=== PATIENT | male | born 1945 | race Caucasian/White ===

== ENCOUNTER → 2018-06-14 15:48 | Outpatient (CLI) | payer OTHER, SELFPAY ==
--- NOTE | 2018-06-14 | DI.RAD.S_ITS ---
PROCEDURE: XR CHEST 2V INDICATIONS: OSTEOARTHRITIS OF SPINE TECHNIQUE: 2 views of the chest were acquired. COMPARISON: None. FINDINGS: Surgical changes and devices: Sternotomy wires, presumed prior CABG. Lungs and pleura: No left-sided pleural effusions or pneumothorax but there is a small posterior subpulmonic right effusion. Lungs are mildly edematous. Mediastinum: Mediastinal contours are normal. Heart size is normal. Bones and chest wall: No suspicious bony abnormalities. Soft tissues appear unremarkable. IMPRESSION: Mild pulmonary edema. Small subpulmonic left effusion. Dictated by: Bala Shrestha M.D. on 06/14/2018 at 16:33 Approved by: Bala Shrestha M.D. on 06/14/2018 at 16:34
== END ==
PROVIDERS: Visit Provider Orthopaedic Surgery Orthopaedic Surgery of the Spine
DX: M47.26 Other spondylosis with radiculopathy, lumbar region (principal); M47.25 Other spondylosis with radiculopathy, thoracolumbar region
CPT/HCPCS: 71046

== ENCOUNTER 2018-07-10 06:01 | Inpatient (IN) | payer OTHER, SELFPAY ==
[2018-06-27 12:42] VITALS: BMI 29.0
[2018-07-10] VITALS (17 sets, daily range): BP systolic 117–160; BP diastolic 46–89; PULSE 62–76; RESP 10–16; TEMP 36.1–37.3; O2SAT 90–99; BMI 28.1
--- NOTE | 2018-07-10 | DI.RAD.S_ITS ---
PROCEDURE: XR LUMBAR SPINE 2-3V INDICATIONS: L3-4, L4-5, TLIF TECHNIQUE: 3 views of the lumbar spine were acquired. COMPARISON: [facility] Outside Film, CR, XR LUMBAR SPINE 2 OR 3 VIEWS, 01/24/2018, 9:33. FINDINGS: Bones: The initial digital acquisition imaging shows a spinal needle localizing the L4-5 disc level, and subsequent image, lateral view, shows late phase of the operative procedure with bilateral transverse pedicle screws and interbody cage disc prostheses devices at L3, L4, L5 and at the intervertebral disc spaces of L3-4 and L4-5, respectively. The final image, frontal projection, shows normal alignment establish after placement of the vertical fixation rods bilaterally crossing posteriorly from L3-L5. Soft tissues: Overlying bowel gas pattern is normal. No suspicious soft tissue calcifications. IMPRESSION: Normal alignment establish after posterior fusion and interbody cage disc prosthesis placement from L3-L5. Dictated by: Bala Shrestha M.D. on 07/11/2018 at 8:42 Approved by: Bala Shrestha M.D. on 07/11/2018 at 8:48
[2018-07-10] MEDS: LACTATED RINGERS 1,000 ML 42 ML IV ×2 (07:04→11:47)
--- NOTE | 2018-07-10 07:08 | SUR.PREOP ---
pt reports has cramping on right side on both upper and lower extremity that is baseline for him.
--- NOTE | 2018-07-10 08:09 | PM.PREOP ---
Pre-operative Note Interval Note Pre-op Check: Yes History & Physical Reviewed by Physician, Yes Exam Performed and Yes History & Physical exam performed today by Physician Changes: No
[2018-07-10] MEDS: CEFAZOLIN 2 GM/100 ML FROZ.PIGGY IV ×2 (08:12→16:17)
--- NOTE | 2018-07-10 08:55 | SUR.OPER ---
Prone on spine table, head in foam head support, padded chest and pelvic supports, gel pad at knees, lower legs supported by pillows; nipples, genitalia and toes free of pressure, arms secured on foam padded arm boards at <90 degrees abduction. Tape over blanket at thigh secured to table.
[2018-07-10] MEDS: BUPIVACAINE 0.25% W/ EPI VIAL 50 ML INJ (09:48)
[2018-07-10] MEDS: BUPIVACAINE LIPOSOME 266 MG/20 ML VIAL INJ (09:49)
--- NOTE | 2018-07-10 12:03 | PM.OP.1 ---
Operative Date/Time/Diagnoses Date of procedure: 07/10/18 Time of procedure: 08:04 Pre-op diagnosis: 1. L3-4, L4-5 spinal stenosis 2. L3-4, L4-5 spondylosis with radiculopathy 3. L4-5 spondylolisthesis Post-op diagnosis: same Procedure & Clinicians Procedure: 1. L3-4, L4-5 Postero-lateral and posterior interbody fusion 2. L3-4, L4-5 interbody cage placement. 3. L3-4, L4-5 decompressive laminectomy with bilateral facetecomies 4. L3-4, L4-5 Posterior segmental instrumentation 5. Beau[place] of bone marrow from iliac crest 6. Utilization of microsurgical technique and operating microscope Same procedure as scheduled: Yes Indications: Patient has been having chronic back pain and worsening lumbar radiculopathy. Patient failed multiple conservative management with worsening pain weakness and numbness in her lower extremity. Patient has been having difficulty performing activity of daily living. After discussing risks benefits of treatment options, patient elected proceed with surgery. Surgeon: Mi Hunter Pipe Fitter Gas Pipe: Holly Kulkarni Click Yes if Unassisted: No Anesthesia Type: General Operative Notes Closure Type: primary Specimen(s): none sent Implants & Drains: Globus revolve screws, Rise cages Estimated Blood Loss (mL): 100 Blood products transfused: none Procedure in detail: Patient was seen in the preoperative area. Risks and benefits of the surgery was discussed with the patient. Informed consent was obtained from the patient and placed in the chart. Surgical site was marked. Patient was taken to the operative room. General anesthesia was administered. Prophylactic antibiotic was given to the patient less than 30 min before the incision was made. Patient was placed into a prone position on the Joo table. Patient's back was then prepped and draped in the sterile fashion. Time-out was performed at this time. Using AP and lateral C-arm imaging the interval between L3-4, L4-5 was identified and marked on patient's back. A 2 inch incision 2 in from midline was made on the right side first. The fascia was incised in line with skin incision. Globus MARS retractors was placed inside the incision and docked onto the L3 and L4 lamina. Using microsurgical technique and operating microscope, a L3, L4 laminectomy and L3-4, L4-5 facetectomy was performed using a Kerrison rongeur. The disc space at L3-4, L4-5 was identified. And a total diskectomy was performed atL3-4, L4-5 level. The endplates were decorticated using a rasp and shaver. The total diskectomy and decortication was performed at L3-4, L4-5 level in order to to accomplish a L3-4, L4-5 fusion. The local bone from the laminectomy and facetectomy was saved for local bone grafting. After the total diskectomy and decortication was completed, Globus viacell bone graft material was combined with local bone that was harvested earlier. At this time, a separate skin is incision was made over the iliac crest. A Jamshidi needle was inserted into the iliac crest through a separate skin incision. 5 cc of bone marrow aspiration was obtained through the separate skin incision using a Jamshidi needle from the iliac crest. The bone marrow aspiration was combined with local bone and the Osteocel bone grafting material. The bone grafting material was placed into the L3-4, L4-5 interbody space along with two cages, one expandable cage at each level. The cages were expanded to their maximum height using the torque limiting screwdriver. At this time a mirror image incision was made on the left side. The fascia was incised in line with the skin incision. Globus MARS retractor was inserted and docked onto the L3-4, L4-5 posterolateral gutter. Using the power drill, posterior-lateral decortication was performed at L3-4, L4-5 level until bleeding cortical bone was identified. The remaining bone grafting material was placed into the L3-4, L4-5 posterior lateral gutter he order to accomplish posterolateral fusion at the L3-4, L4-5 levels. Using the double C-arm technique, pedicle screws were placed into the L3, L4, L5 pedicles bilaterally. This was done by placing the Jamshidi needle into the pedicles, then placing the guidewires over the Jamshidi needle, and finally placing the cannulated screws over the guidewires bilaterally. After the pedicle screws were placed, 2 titanium rods was locked into the heads of the pedicle screws using locking caps and torque limiting screwdriver. Total 6 pedicles screws were placed. After all the hardware was placed, and confirmed with AP and lateral C-arm imaging, the wound was then irrigated with sterile normal saline and packed with Ray-Treva gauze for 3 min to accomplish hemostasis. After the gauze was removed the deep fascia was closed with #1 Vicryl suture. The subcutaneous layer was closed with 2-0 Vicryl. The skin was closed with skin pati. Patient tolerated the procedure well. There were no complications. Complications: none
--- NOTE | 2018-07-10 12:25 | SUR.PHASEI ---
Wakeful but still not spitting out oral airway.
--- NOTE | 2018-07-10 12:41 | SUR.PHASEI ---
With gradually increasing wakefulness. Eyes seen to have some scleral edema. Blood stains from neuromonitoring cleaned off head.
[2018-07-10] MEDS: SODIUM CHLORIDE 0.9% 1,000 ML 100 ML IV ×2 (13:30→22:57)
--- NOTE | 2018-07-10 13:42 | PC.NURSE ---
1330 Pt arrived at 1305 via bed from PACU. jPt A,A,Ox3. SL to R FA, biggs cath in place, was placed in OR today. Pt skin is very pale, intact. Drsg to low back surg site in place. Pt able to move all extremities. CMS+,VS WNL. mdenies pain, no nausea. scd footies on.
--- NOTE | 2018-07-10 14:00 | CM.DANOTE ---
DCP: Case received, EMR reviewed and met with patient. Introduced self and role. DCP template completed with information currently available. Patient is a 73 year old male who admitted early this morning to the care of the hospitalist team. PCP: Dr. Estes. Payer: confirmed: [facility] [employer]. Patient came to hospital for surgical procedure, L3-4,5 Posterior interbody fusion. Patient has history of back pain, as well as worstening lumbar radiculopathy. Attempted to reach to obtain information about patient, for he had been in surgery for most of the day, left message with her. Patient arrived on floor about an hour ago. Patient awake, some nausea. Introduced self and role. Lives in [place] with his spouse. Uses a cane at home, and has a walker as well. Patient has been independent, but has had history of lumbar pain. P: DCP to continue to follow closely. Patient should be able to return home when stable with outpatient physical therapy. Will be working with internal physical therapy here at hospital as well. Will also collaborate with therapy team on progress here in hospital. Mona Israel RN/Senior Vice President & General Counsel
[2018-07-10] MEDS: HYDROMORPHONE 1 MG INJ 0.5 MG IV (14:30)
--- NOTE | 2018-07-10 14:36 | PT.IIE ---
Addendum entered and electronically signed by An Gonzales PT 07/10/18 17:20: This is to certify that I have reviewed this documentation and POC Original Note: Current Diagnoses Foot drop, right foot (07/10/18) Other spondylosis with radiculopathy, lumbar region (07/10/18) Spinal stenosis, lumbar region with neurogenic claudication (07/10/18) Surgery Performed Operation Date: 07/10/18 07:45 Actual Procedures p L3-4, L4-5 TLIF w/Posterior Instru.(Not Applicable) - Mi Hunter MD Surgical History (Last Updated 06/27/18 @ 13:22 by Tereza Wadsworth RN) Hx of appendectomy (Acute) Hx of hand surgery (Acute) S/P CABG x 3 (Acute ~07/2003) S/P trigger finger release (Acute) Status post cataract extraction of both eyes with insertion of intraocular lens (Acute ~2014) Medical History (Last Updated 06/27/18 @ 13:22 by Tereza Wadsworth RN) CML (chronic myelocytic leukemia) (Acute) Chronic anemia (Acute) Diarrhea (Acute) Easy bruisability (Acute) HTN (hypertension) (Acute) Hypocalcemia (Acute) Hypokalemia (Acute) Low back pain (Acute) Myocardial infarction (Acute ~2002) Pneumonia (Acute ~2002) Sciatica (Acute) Seasonal allergies (Acute) Skin cancer (Acute) Tibia fracture (Acute) Physical Therapy Inpatient Evaluation/Re-Eval M1 PT/OT-IP Prior Functional Status Start: 07/10/18 16:06 Freq: NEEDED Status: Active Protocol: Document 07/10/18 14:36 (Rec: 07/10/18 16:34 [id number]) Medical Review Prior Functional Status Medical History Reviewed Yes Communication No deficits noted Mobility and Gait Previous ambulation is modified independent; pt using spc for bad days related to his back pain and/or longer distance ambulation (~20% of the time). Pt leans on shopping cart to complete shopping; leans heavily on rails to up/down stairs. Otherwise pt uses no AD for ambulation and states ambulation tolerances 10-15 mins. Activities of Daily Living and IADL's All other mobilities are stated as independent including self care and driving. Social History Household Members spouse Living Arrangements House Number of Floors (Floors) Two Floors Number of Stairs To Enter/Railing? 2 steps L rail to enter. Lives entirely on main floor, however does have a 2nd floor, rarely visited, 15 steps R rail. Home Environment Standard Height Toilet Walk in Shower Home Equipment Front Wheel Walker Straight Cane Raised Toilet Seat Without Armrests Employment Status Retired Additional Social History Comment Pt lives with , Carolyn, who can assist 05/03 if needed. M2 PT-IP Current Condition Start: 07/10/18 16:06 Freq: NEEDED Status: Active Protocol: Document 07/10/18 14:36 (Rec: 07/10/18 16:34 [id number]) Physical Therapy Current Condition Current Condition Evaluation Date 07/10/18 Treatment Diagnosis Lumbar lami/fusion; difficulty walking Onset Date 07/10/2018 Precautions Lumbar Precautions Log Roll No Twisting Limit Bending Lifting Restriction of 10 lbs Gait Belt above Incisional Area M3 PT-IP Subjective Start: 07/10/18 16:06 Freq: NEEDED Status: Active Protocol: Document 07/10/18 14:36 (Rec: 07/10/18 16:34 [id number]) Subjective Physical Therapy Visit Type Type Initial Evaluation Visit Start Time 14:36 Visit Stop Time 15:22 Total Visit Minutes 46 Number of MANAGER FOOD Visits 0 Physical Therapy Visit Comments Patient Comments Pt agreeable to mobilize with PT. , Carolyn, present for session. Patient Goals plans to d/c home with Therapy Pain Assessment Pain When Pain Assessed During Mobility Pain Present Pain Present Pain Reported Location Back Scale Used 7/10 resting, pt states just received pain shot;4/10 at end of session Pain Management Techniques Apply Cold Modification of Treatment Re-positioning Timing of Activity with Medications M4 PT-IP Mobility and Gait Start: 07/10/18 16:06 Freq: NEEDED Status: Active Protocol: Document 07/10/18 14:36 (Rec: 07/10/18 16:34 [id number]) PT-Bed Mobility Assessment Rolling Type of Rolling Log Rolling Bilateral Level of Assist Standby Assistance Supine to Sit Supine to Sit Standby Assistance Sit to Supine Sit to Supine Standby Assistance Scooting Scooting to Edge of Bed Standby Assistance Scooting Up and Down in Bed Standby Assistance PT-Transfer Assessment Sit to and From Stand Sit to and from Stand Moderate Assistance 1 Person Assistance Use of Upper Extremities Equipment Transfer Assistive Device Gait Belt Front Wheeled Walker Orthotic/Prosthetic Devices or Brace: No Transfers Transfer Destination Bed Chair Transfer Technique Ambulates between surfaces Comments Mobility Comments Resting/supine HOB elevated BP 146/90, HR 66, O2 92%. Supine <> sit is SBA, min cues needed for log roll. Sit <> stand is modAx1 to assist pt fully upright as well as stabilize fww. Despite max cues, pt using fww to assist sitting/standing. Pt returned to seated while PT adjusts walker, and while in sitting, pt c/o nausea and (+) for emesis. After resting ~2 mins . and cued for deep breathing, pt states nausea is fully resolved and he is agreeable to continue mobilizing. Nursing aware of pt status. Gait Assessment Gait Gait Assistance Required: Standby Assistance Distance (Feet) 30 Able to Maintain Weight Bearing Status Yes During Gait Assistive Devices Assistive Device Gait Belt Front Wheeled Walker Orthotic/Prosthetic Devices or Brace: No Gait Deviations General Gait Pattern Decreased Stride Length Decreased Feet Clearance Flexed Trunk Factors Limiting Gait Function Factors Limiting Gait Function Decreased Activity Tolerance Decreased Strength Limited Range of Motion Pain Poor Balance Poor Safety Awareness Comments Gait Comments Pt ambulates 30+30 ft SBA with fww min cues. Gait notable for forward flexed posture and R > L toeing out that pt states is related to his long history of back pain. He demonstrates slow, guarded steps, with decreased stride length and low foot clearance. He is able to partially correct posture and improve step length/foot clearance with min cues. Post ambulation, seated BP 154/71, HR 65 and O2 99%. PT-Balance Assessment Sitting Balance and Reactions Static Sitting Balance Ability Good Dynamic Sitting Balance Ability Good Standing Balance and Reactions Static Standing Balance Ability Fair Dynamic Standing Balance Ability Fair Device Used fww M5 PT-IP Objective Assessments Start: 07/10/18 16:06 Freq: NEEDED Status: Active Protocol: Document 07/10/18 14:36 (Rec: 07/10/18 16:34 [id number]) Orientation Orientation/Cognition Level of Alertness Alert Orientation Name Age Birthday Month Date Year Day of Week Place Situation Language Function Ability No Deficits Noted Safety Awareness Decreased Safety Awareness Comments During interview pt is sleepy and has hard time keeping eyes open Gross Range of Motion Lower Extremity ROM Assessment Within Functional Limits Strength Lower Extremity Strength Assessment Bilaterally Impaired Comments Strength Comments RLE grossly 4/5. LLE 4+/5 Sensation Assessment Sensation Light Touch Intact M6 PT-IP Treatment Start: 07/10/18 16:06 Freq: NEEDED Status: Active Protocol: Document 07/10/18 14:36 (Rec: 07/10/18 16:34 [id number]) Physical Therapy Treatment Education Education Provided Precautions Weight Bearing Status Post-Op Packet Safety Other Treatments Other Treatment Performed Pt and are recommended to get shower chair and install hand held shower head, as well as grab bar near toilet for pt safety. They agreed. M7 PT-IP Assessment and Plan Start: 07/10/18 16:06 Freq: NEEDED Status: Active Protocol: Document 07/10/18 14:36 (Rec: 07/10/18 16:34 [id number]) PT Summary Assessment and Plan Potential Rehabilitation Potential Good Status of Condition at Evaluation Stable Summary Impairments Pain ROM Strength Balance Bed Mobility Transfers Gait Activity Tolerance Assessment Summary Pt s/p lumbar laminectomy/ fusion with difficulty walking . He was able to tolerate short distance ambulation SBA, however needed assistance with sitting/standing. Pt needs to complete stair climbing, progress ambulation distances, and may need to have caregiver training prior to d/c. Once safety demonstrated with the above activities and pt is medically ready, recommend d/c to home with assist (). He would also benefit from OP PT to improve pt mobilities and activity tolerance. Goals Bed Mobility Goal Independent Transfer Goal Standby Assistance Front Wheeled Walker Gait Goal Independent Front Wheel Walker Gait Distance 150 Other Goals Up/down 2 steps L rail CGA as needed to access home safely. Up/down 15 steps R rail CGA as needed/desired by pt to access upstairs floor of his home Days to Meet Goals 3 Frequency of Treatment Frequency Of Treatment Twice a Day Treatment Plan Physical Therapy Treatment Plan Bed Mobility Training Transfer Training Gait Training Therapeutic Exercise Balance Retraining Post Op Education Discharge Planning Hot or Cold Pack Neuromuscular Re-ed Coordination Retraining Manual Therapy Other Recommendations and Next Treatment ambulatoin, stair climbing, Focus caregiver training as needed. Recommendations To Nursing Amount of Assist Needed 1 Person Assist Discharge Recommendations PT Discharge Recommendations Home with Assistance Outpatient PT
[2018-07-10] MEDS: ONDANSETRON 4 MG/2 ML INJ IV ×2 (15:01→22:52)
[2018-07-10] MEDS: OXYCODONE IR 5 MG TABLET 10 MG PO ×2 (16:18→22:51)
[2018-07-10] MEDS: SENNOSIDES 8.6 MG TABLET 17.2 MG PO (17:16)
[2018-07-10] MEDS: DOCUSATE 100 MG CAPSULE PO (17:16)
[2018-07-10] MEDS: CARVEDILOL 6.25 MG TABLET PO (17:16)
[2018-07-10] MEDS: IMATINIB 400 MG 600 EACH PO (17:17)
[2018-07-11 00:03] VITALS: BP 147/70; PULSE 80; RESP 18; TEMP 36.6; O2SAT 98
[2018-07-11] MEDS: CEFAZOLIN 2 GM/100 ML FROZ.PIGGY IV (02:29)
[2018-07-11] MEDS: OXYCODONE IR 5 MG TABLET 10 MG PO ×4 (03:08→18:05)
[2018-07-11 03:14] VITALS: BP 148/77; PULSE 90; RESP 18; TEMP 36.2; O2SAT 98
[2018-07-11 05:53] LABS: Hematocrit 28.2 % (41-53); Hemoglobin 9.5 g/dL (13.5-17.5)
[2018-07-11 08:00] VITALS: BP 151/76; PULSE 88; RESP 18; TEMP 37; O2SAT 95
[2018-07-11] MEDS: ONDANSETRON 4 MG/2 ML INJ IV (08:31)
[2018-07-11] MEDS: DOCUSATE 100 MG CAPSULE PO ×2 (08:56→17:23)
[2018-07-11] MEDS: LORATADINE 10 MG TABLET PO (08:56)
[2018-07-11] MEDS: CARVEDILOL 6.25 MG TABLET PO ×2 (08:56→17:23)
[2018-07-11] MEDS: IMATINIB 400 MG 600 EACH PO ×2 (08:56→17:21)
--- NOTE | 2018-07-11 10:13 | PM.PNPO.1 ---
Subjective Date Patient Seen: 07/11/18 Time Patient Seen: 10:13 Interval history: Hospital day 2, postop day 1 following L3-4, L4-[address] Hunter. Patient has remained stable. Pain controlled with oxycodone 10 mg. He does have Medina catheter in place. He was told that he would Medina catheter in for 2 days postop. Patient anticipates 2 day stay in the hospital. Lab today notes H&H 9.5/28.2. Patient did have some nausea and vomiting during the night. Feeling better today. Exam Vital Signs (past 8 hours): - 07/11/18 03:14 07/11/18 08:00 Temperature 97.2 F L 98.6 F Pulse Rate 90 88 Respiratory Rate 18 18 Blood Pressure 148/77 H 151/76 H Pulse Oximetry 98 95 Oxygen Delivery Method Room Air Oxygen Flow Rate 0 Narrative Exam Narrative: Alert, oriented no acute distress sitting in chair eating breakfast. Back. Dressing to lumbar area is dry without drainage but small areas of shadowing. No signs of infection or inflammation. Legs. No calf pain or swelling. Pulses symmetrical. Good strength on foot dorsiflexion plantar flexion. He is able do leg extension from sitting position bilateral. Objective Labs Result Diagrams: 07/11/18 05:08 Labs: Laboratory Results - last 24 hr 07/11/18 05:08 Hgb 9.5 L Hct 28.2 L Assessment & Plan Post-op Postoperative Procedures Operation Date: 07/10/18 07:45 Actual Procedures Side Surgeon p L3-4, L4-5 TLIF w/Posterior Instru. Not Applicable Mi Hunter MD plan: Patient will work with physical therapy today. Anticipate DC Medina catheter tomorrow morning. Anticipate discharge home if he is stable tomorrow. CovRsite dressing to lumbar incision before going home. Quality VTE Deep Vein Thrombosis/Pulmonary Embolism Present on Admission: No
--- NOTE | 2018-07-11 11:00 | PT.IPTN ---
Current Diagnoses Foot drop, right foot (07/10/18) Other spondylosis with radiculopathy, lumbar region (07/10/18) Spinal stenosis, lumbar region with neurogenic claudication (07/10/18) Surgery Performed Operation Date: 07/10/18 07:45 Actual Procedures p L3-4, L4-5 TLIF w/Posterior Instru.(Not Applicable) - Mi Hunter MD Physical Therapy Treatment Note M2 PT-IP Current Condition Start: 07/10/18 16:06 Freq: NEEDED Status: Active Protocol: Document 07/10/18 14:36 (Rec: 07/10/18 16:34 [id number]) Physical Therapy Current Condition Current Condition Evaluation Date 07/10/18 Treatment Diagnosis Lumbar lami/fusion; difficulty walking Onset Date 07/10/2018 Precautions Lumbar Precautions Log Roll No Twisting Limit Bending Lifting Restriction of 10 lbs Gait Belt above Incisional Area M3 PT-IP Subjective Start: 07/10/18 16:06 Freq: NEEDED Status: Active Protocol: Document 07/11/18 11:00 GGD (Rec: 07/11/18 12:19 GGD [id number]) Subjective Physical Therapy Visit Type Type Treatment Note Visit Start Time 10:35 Visit Stop Time 11:00 Total Visit Minutes 25 Number of CONCRETE ENGINEERING TECHNICIAN Visits 1 Physical Therapy Visit Comments Patient Comments Pt states he would like to walk more. Therapy Pain Assessment Pain When Pain Assessed At Rest Pain Present Pain Present Pain Reported Location Back Intensity 4 Scale Used Numeric (1 - 10) Pain Management Techniques Apply Cold Modification of Treatment Re-positioning Timing of Activity with Medications M4 PT-IP Mobility and Gait Start: 07/10/18 16:06 Freq: NEEDED Status: Active Protocol: Document 07/11/18 11:00 GGD (Rec: 07/11/18 12:19 GGD [id number]) PT-Bed Mobility Assessment Rolling Type of Rolling Log Rolling Bilateral Level of Assist Standby Assistance Supine to Sit Supine to Sit Contact Guard Assistance Bedrails Sit to Supine Sit to Supine Contact Guard Assistance Bedrails Scooting Scooting to Edge of Bed Standby Assistance Scooting Up and Down in Bed Standby Assistance PT-Transfer Assessment Sit to and From Stand Sit to and from Stand Contact Guard Assistance Use of Upper Extremities Equipment Transfer Assistive Device Gait Belt Front Wheeled Walker Orthotic/Prosthetic Devices or Brace: No Transfers Transfer Destination Bed Chair Comments Mobility Comments PT needed mod cues for sit to stand and bed mobility. Gait Assessment Gait Gait Assistance Required: Standby Assistance Distance (Feet) 260 Able to Maintain Weight Bearing Status Yes During Gait Assistive Devices Assistive Device Gait Belt Front Wheeled Walker Orthotic/Prosthetic Devices or Brace: No Gait Deviations General Gait Pattern Decreased Stride Length Decreased Feet Clearance Flexed Trunk Factors Limiting Gait Function Factors Limiting Gait Function Decreased Activity Tolerance Decreased Strength Limited Range of Motion Pain Poor Balance Poor Safety Awareness M5 PT-IP Objective Assessments Start: 07/10/18 16:06 Freq: NEEDED Status: Active Protocol: Document 07/10/18 14:36 (Rec: 07/10/18 16:34 [id number]) Orientation Orientation/Cognition Level of Alertness Alert Orientation Name Age Birthday Month Date Year Day of Week Place Situation Language Function Ability No Deficits Noted Safety Awareness Decreased Safety Awareness Comments During interview pt is sleepy and has hard time keeping eyes open Gross Range of Motion Lower Extremity ROM Assessment Within Functional Limits Strength Lower Extremity Strength Assessment Bilaterally Impaired Comments Strength Comments RLE grossly 4/5. LLE 4+/5 Sensation Assessment Sensation Light Touch Intact M6 PT-IP Treatment Start: 07/10/18 16:06 Freq: NEEDED Status: Active Protocol: Document 07/11/18 11:00 GGD (Rec: 07/11/18 12:19 GGD [id number]) Physical Therapy Treatment Education Education Provided Precautions M7 PT-IP Assessment and Plan Start: 07/10/18 16:06 Freq: NEEDED Status: Active Protocol: Document 07/11/18 11:00 GGD (Rec: 07/11/18 12:19 GGD [id number]) PT Summary Assessment and Plan Summary Assessment Summary Pt able to sit to stand with less assistance with mod cues. He need increase in cues and assist with bed mobility. He was able to progress gait distance without increase in pain or unsteadiness. Frequency of Treatment Frequency Of Treatment Twice a Day Treatment Plan Other Recommendations and Next Treatment ambulatoin, stair climbing, Focus caregiver training as needed. Recommendations To Nursing Amount of Assist Needed 1 Person Assist Discharge Recommendations PT Discharge Recommendations Home with Assistance
--- NOTE | 2018-07-11 12:05 | OT.IP.EVAL ---
Current Diagnoses Foot drop, right foot (07/10/18) Other spondylosis with radiculopathy, lumbar region (07/10/18) Spinal stenosis, lumbar region with neurogenic claudication (07/10/18) Surgery Performed Operation Date: 07/10/18 07:45 Actual Procedures p L3-4, L4-5 TLIF w/Posterior Instru.(Not Applicable) - Mi Hunter MD Past Medical History (Last Updated 06/27/18 @ 13:22 by Tereza Wadsworth RN) CML (chronic myelocytic leukemia) (Acute) Chronic anemia (Acute) Diarrhea (Acute) Easy bruisability (Acute) HTN (hypertension) (Acute) Hypocalcemia (Acute) Hypokalemia (Acute) Low back pain (Acute) Myocardial infarction (Acute ~2002) Pneumonia (Acute ~2002) Sciatica (Acute) Seasonal allergies (Acute) Skin cancer (Acute) Tibia fracture (Acute) Surgical History (Last Updated 06/27/18 @ 13:22 by Tereza Wadsworth RN) Hx of appendectomy (Acute) Hx of hand surgery (Acute) S/P CABG x 3 (Acute ~07/2003) S/P trigger finger release (Acute) Status post cataract extraction of both eyes with insertion of intraocular lens (Acute ~2014) Occupational Therapy Inpatient Evaluation/Re-Eval M1 PT/OT-IP Prior Functional Status Start: 07/10/18 16:06 Freq: NEEDED Status: Active Protocol: Document 07/10/18 14:36 (Rec: 07/10/18 16:34 [id number]) Medical Review Prior Functional Status Medical History Reviewed Yes Communication No deficits noted Mobility and Gait Previous ambulation is modified independent; pt using spc for bad days related to his back pain and/or longer distance ambulation (~20% of the time). Pt leans on shopping cart to complete shopping; leans heavily on rails to up/down stairs. Otherwise pt uses no AD for ambulation and states ambulation tolerances 10-15 mins. Activities of Daily Living and IADL's All other mobilities are stated as independent including self care and driving. Social History Household Members spouse Living Arrangements House Number of Floors (Floors) Two Floors Number of Stairs To Enter/Railing? 2 steps L rail to enter. Lives entirely on main floor, however does have a 2nd floor, rarely visited, 15 steps R rail. Home Environment Standard Height Toilet Walk in Shower Home Equipment Front Wheel Walker Straight Cane Raised Toilet Seat Without Armrests Employment Status Retired Additional Social History Comment Pt lives with , Carolyn, who can assist 24/7 if needed. M1 PT/OT-IP Prior Functional Status Start: 07/11/18 11:53 Freq: NEEDED Status: Active Protocol: Document 07/11/18 11:54 [facility] (Rec: 07/11/18 12:05 [facility] [id number]) Medical Review Prior Functional Status Medical History Reviewed Yes Communication No deficits noted Mobility and Gait Previous ambulation is modified independent; pt using spc for bad days related to his back pain and/or longer distance ambulation (~20% of the time). Pt leans on shopping cart to complete shopping; leans heavily on rails to up/down stairs. Otherwise pt uses no AD for ambulation and states ambulation tolerances 10-15 mins. Activities of Daily Living and IADL's All other mobilities are stated as independent including self care and driving. Social History Household Members spouse Living Arrangements House Number of Floors (Floors) Two Floors Number of Stairs To Enter/Railing? 2 steps L rail to enter. Lives entirely on main floor, however does have a 2nd floor, rarely visited, 15 steps R rail. Home Environment Standard Height Toilet Walk in Shower Home Equipment Front Wheel Walker Straight Cane Raised Toilet Seat Without Armrests Employment Status Retired Additional Social History Comment Pt lives with , Carolyn, who can assist 24/7 if needed. M2 OT-IP Current Condition Start: 07/11/18 11:53 Freq: Status: Active Protocol: Document 07/11/18 11:54 [facility] (Rec: 07/11/18 12:05 [facility] [id number]) Occupational Therapy Current Condition Current Condition Evaluation Date 07/11/18 Treatment Diagnosis Spinal Stenosis Diagnosis Onset Date 07/10/18 Post Operative Precautions Lumbar Precautions Log Roll No Twisting Limit Bending Lifting Restriction of 10 lbs Gait Belt above Incisional Area M3 OT- IP Subjective and Pain Start: 07/11/18 11:53 Freq: Status: Active Protocol: Document 07/11/18 11:54 [facility] (Rec: 07/11/18 12:05 [facility] [id number]) OT- Subjective Occupational Therapy Visit Type Type Initial Evaluation Visit Start Time 09:50 Visit Stop Time 10:10 Total Visit Minutes 20 Occupational Therapy Visit Comments Patient/Caregiver Goals To go home when medically stable. OT Pain Assessment Pain When Pain Assessed At Rest Pain Present Pain Present Pain Reported Location Neck Intensity 5 Scale Used Numeric (1 - 10) M4 OT- IP ADL's Start: 07/11/18 11:53 Freq: Status: Active Protocol: Document 07/11/18 11:54 [facility] (Rec: 07/11/18 12:05 [facility] [id number]) OT ADL-Grooming General Evaluation Grooming Ability Standby Assistance Areas Needing Assistance Retrieving/Set-up of Grooming Items OT ADL-Oral Care General Eval Oral Care Ability Independent OT ADL-Dressing General Eval Lower Body Dressing Ability Maximum Assistance Areas Needing Assistance Socks, pt states has docket specialist at home and to assist with socks. Pt mainly wears slippers at home. OT ADL-Toileting Comments OT Toileting Comments Pt still has catheter in place . M6 OT- IP Functional Cognition Start: 07/11/18 11:53 Freq: Status: Active Protocol: Document 07/11/18 11:54 [facility] (Rec: 07/11/18 12:05 [facility] [id number]) OT- Vision and Hearing OT- Hearing Assessment OT- Hearing Assessment WFL M7 OT- IP Mobility and Balance Start: 07/11/18 11:53 Freq: Status: Active Protocol: Document 07/11/18 11:54 [facility] (Rec: 07/11/18 12:05 [facility] [id number]) OT-Transfer Assessment Sit to and From Stand Sit to and from Stand Minimal Assistance Comments Mobility Comments MEÑO from lower chair and SBA from recliner. OT- Balance Assessment Sitting Balance and Reactions Static Sitting Balance Ability Normal Dynamic Sitting Balance Ability Normal Standing Balance and Reactions Static Standing Balance Ability Good Dynamic Standing Balance Ability Fair M8 OT- IP Objective Assessments Start: 07/11/18 11:53 Freq: Status: Active Protocol: Document 07/11/18 11:54 [facility] (Rec: 07/11/18 12:05 [facility] [id number]) OT Gross Range of Motion Upper Extremity Range of Motion Assessment Within Functional Limits M9 OT- IP Assessment and Plan Start: 07/11/18 11:53 Freq: Status: Active Protocol: Document 07/11/18 11:54 [facility] (Rec: 07/11/18 12:05 [facility] [id number]) OT Summary Assessment and Plan Potential Rehabilitation Potential Excellent Analytic Complexity at Evaluation Low Summary OT Impairments Pain Balance Functional Mobility Dressing Toileting Bathing Toilet Transfers Shower Transfers Progress Towards Goals Progressing Toward Goals Assessment Summary Pt low complexity and main barrier is steps. Pt has supportive to assist at home for ADL needs. Goals Grooming Goal Independent Dressing Goal Minimal Assistance Toileting Goal Standby Assistance Bathing Goal Minimal Assistance Toilet Transfer Goal Standby Assistance Shower Transfer Goal Standby Assistance Patient/Caregiver Education Goal Caregiver Independent Assisting Patient Days to Meet Goals 3 Frequency of Treatment Frequency Of Treatment Once a Day Treatment Plan OT Treatment Plan ADL Training Functional Mobility Patient/Family Education Discharge Planning Other Treatment Recommendations and Next shower Treatment Focus Discharge Recommendations OT Discharge Recommendations Home with Assistance Home Equipment Needs Shower chair
[2018-07-11 13:00] VITALS: BP 139/64; PULSE 79; RESP 18; TEMP 37.2; O2SAT 99
--- NOTE | 2018-07-11 15:15 | PT.IPTN ---
Current Diagnoses Foot drop, right foot (07/10/18) Other spondylosis with radiculopathy, lumbar region (07/10/18) Spinal stenosis, lumbar region with neurogenic claudication (07/10/18) Surgery Performed Operation Date: 07/10/18 07:45 Actual Procedures p L3-4, L4-5 TLIF w/Posterior Instru.(Not Applicable) - Mi Hunter MD Physical Therapy Treatment Note M2 PT-IP Current Condition Start: 07/10/18 16:06 Freq: NEEDED Status: Active Protocol: Document 07/10/18 14:36 (Rec: 07/10/18 16:34 [id number]) Physical Therapy Current Condition Current Condition Evaluation Date 07/10/18 Treatment Diagnosis Lumbar lami/fusion; difficulty walking Onset Date 07/10/2018 Precautions Lumbar Precautions Log Roll No Twisting Limit Bending Lifting Restriction of 10 lbs Gait Belt above Incisional Area M3 PT-IP Subjective Start: 07/10/18 16:06 Freq: NEEDED Status: Active Protocol: Document 07/11/18 15:20 GGD (Rec: 07/11/18 16:12 GGD [id number]) Subjective Physical Therapy Visit Type Type Treatment Note Visit Start Time 14:55 Visit Stop Time 15:20 Total Visit Minutes 25 Number of WELDER SETTER ELECTRON BEAM MACHINE Visits 2 Physical Therapy Visit Comments Patient Comments Pt states he just had a nap. Therapy Pain Assessment Pain When Pain Assessed At Rest Pain Present Pain Present Pain Reported Location Back Intensity 3 Scale Used Numeric (1 - 10) Pain Management Techniques Re-positioning Timing of Activity with Medications M4 PT-IP Mobility and Gait Start: 07/10/18 16:06 Freq: NEEDED Status: Active Protocol: Document 07/11/18 15:20 GGD (Rec: 07/11/18 16:12 GGD [id number]) PT-Bed Mobility Assessment Rolling Type of Rolling Log Rolling Bilateral Level of Assist Standby Assistance Supine to Sit Supine to Sit Contact Guard Assistance Scooting Scooting to Edge of Bed Standby Assistance Scooting Up and Down in Bed Standby Assistance PT-Transfer Assessment Sit to and From Stand Sit to and from Stand Contact Guard Assistance Use of Upper Extremities Equipment Transfer Assistive Device Gait Belt Front Wheeled Walker Orthotic/Prosthetic Devices or Brace: No Transfers Transfer Destination Chair Comments Mobility Comments PT needed min cues for sit to stand and bed mobility. Gait Assessment Gait Gait Assistance Required: Standby Assistance Distance (Feet) 160 Able to Maintain Weight Bearing Status Yes During Gait Assistive Devices Assistive Device Gait Belt Front Wheeled Walker Orthotic/Prosthetic Devices or Brace: No Gait Deviations General Gait Pattern Decreased Stride Length Decreased Feet Clearance Flexed Trunk Factors Limiting Gait Function Factors Limiting Gait Function Decreased Activity Tolerance Decreased Strength Limited Range of Motion Pain M5 PT-IP Objective Assessments Start: 07/10/18 16:06 Freq: NEEDED Status: Active Protocol: Document 07/10/18 14:36 (Rec: 07/10/18 16:34 [id number]) Orientation Orientation/Cognition Level of Alertness Alert Orientation Name Age Birthday Month Date Year Day of Week Place Situation Language Function Ability No Deficits Noted Safety Awareness Decreased Safety Awareness Comments During interview pt is sleepy and has hard time keeping eyes open Gross Range of Motion Lower Extremity ROM Assessment Within Functional Limits Strength Lower Extremity Strength Assessment Bilaterally Impaired Comments Strength Comments RLE grossly 4/5. LLE 4+/5 Sensation Assessment Sensation Light Touch Intact M6 PT-IP Treatment Start: 07/10/18 16:06 Freq: NEEDED Status: Active Protocol: Document 07/11/18 15:20 GGD (Rec: 07/11/18 16:12 GGD [id number]) Physical Therapy Treatment Education Education Provided Precautions M7 PT-IP Assessment and Plan Start: 07/10/18 16:06 Freq: NEEDED Status: Active Protocol: Document 07/11/18 15:20 GGD (Rec: 07/11/18 16:12 GGD [id number]) PT Summary Assessment and Plan Summary Assessment Summary Pt is progressing with bed mobility. He needed CGA for bed mobility. He is improving with sit to stand. He need cues for posture with gait. Frequency of Treatment Frequency Of Treatment Twice a Day Treatment Plan Other Recommendations and Next Treatment ambulatoin, stair climbing, Focus caregiver training as needed. Recommendations To Nursing Amount of Assist Needed 1 Person Assist Discharge Recommendations PT Discharge Recommendations Home with Assistance
[2018-07-11 16:37] VITALS: BP 112/52; PULSE 77; RESP 16; TEMP 37.1; O2SAT 96
[2018-07-11 17:23] VITALS: BP 132/56; PULSE 83
[2018-07-11] MEDS: SENNOSIDES 8.6 MG TABLET 17.2 MG PO (17:23)
[2018-07-11] MEDS: SODIUM CHLORIDE 0.9% FLUSH 10 ML IV (21:02)
[2018-07-12] MEDS: OXYCODONE IR 5 MG TABLET 10 MG PO ×3 (06:11→13:20)
[2018-07-12 06:29] VITALS: BP 146/66; PULSE 84; RESP 16; TEMP 37; O2SAT 96
[2018-07-12 09:00] VITALS: BP 123/55; PULSE 87; RESP 16; TEMP 36.6; O2SAT 96
--- NOTE | 2018-07-12 09:04 | OT.IP.TRT ---
Current Diagnoses Foot drop, right foot (07/10/18) Other spondylosis with radiculopathy, lumbar region (07/10/18) Spinal stenosis, lumbar region with neurogenic claudication (07/10/18) Surgery Performed Operation Date: 07/10/18 07:45 Actual Procedures p L3-4, L4-5 TLIF w/Posterior Instru.(Not Applicable) - Mi Hunter MD Occupational Therapy Treatment Note M2 OT-IP Current Condition Start: 07/11/18 11:53 Freq: Status: Active Protocol: Document 07/11/18 11:54 [facility] (Rec: 07/11/18 12:05 [facility] [id number]) Occupational Therapy Current Condition Current Condition Evaluation Date 07/11/18 Treatment Diagnosis Spinal Stenosis Diagnosis Onset Date 07/10/18 Post Operative Precautions Lumbar Precautions Log Roll No Twisting Limit Bending Lifting Restriction of 10 lbs Gait Belt above Incisional Area M3 OT- IP Subjective and Pain Start: 07/11/18 11:53 Freq: Status: Active Protocol: Document 07/12/18 09:03 [facility] (Rec: 07/12/18 09:04 [facility] [id number]) OT- Subjective Occupational Therapy Visit Type Type Treatment Note Notes Finalized all OT suggestions and needs. Pt's has good understanding for all needs. Pt states would rather shower at home. No charge.
[2018-07-12] MEDS: IMATINIB 400 MG 600 EACH PO (09:09)
[2018-07-12] MEDS: CARVEDILOL 6.25 MG TABLET PO (09:10)
[2018-07-12] MEDS: SODIUM CHLORIDE 0.9% FLUSH 10 ML IV (09:10)
[2018-07-12] MEDS: DOCUSATE 100 MG CAPSULE PO (09:10)
[2018-07-12] MEDS: LORATADINE 10 MG TABLET PO (09:10)
--- NOTE | 2018-07-12 10:23 | PM.DS.1 ---
History of Present Illness Date Patient Seen: 07/12/18 Chief complaint: [id number] Narrative: Patient seen bedside s/p L3-4, L4-[address] Hunter POD #2. Patient is doing better, ambulating well with PT. Pain is well controlled. Patient had his catheter removed this morning but has not yet voided. He denies CP, SOB, calf pain, N/V, or numbness/tingling. He would like to go home today. Discharge Providers Date of admission: 07/10/18 06:01 Primary care physician: Bal Estes Consults: 06/27/18 14:15 Consult to Anesthesiology Routine Comment: Consulting Provider: Anesthesiologist Reason for consultation: Surgeon requested re: Cardiac history 07/10/18 13:01 Consult to Occupational Therapy Evaluate & Treat Comment: Physician Instructions: Evaluate and treat Consult to Physical Therapy Evaluate & Treat Comment: Physician Instructions: Evaluate and Treat Discharge provider: Cristina Bauer PA-C Discharge Date: 07/12/18 Summary Discharge Diagnosis: 1. L3-4, L4-5 spinal stenosis 2. L3-4, L4-5 spondylosis with radiculopathy 3. L4-5 spondylolisthesis Hospital Course: Patient was admitted to the hospital s/p L3-4, L4-5 TLIF on 07/10/[address] Hunter. Patient tolerated the procedure well with no major complications. He was transferred to the acute care floor and placed on the standard spinal post-op protocol. He was seen by PT who recommended that he be discharged home. Patient was stable and ready for discharge on 07/12/18. Status at Discharge Cognitive/behavioral status at discharge: Alert & oriented x3 Functional status at discharge: uses cane/walker Overall status at discharge: patient is progressing back to baseline Time Spent with Patient Less than 30 minutes Exam Vital Signs (past 8 hours): - 07/12/18 06:29 07/12/18 09:00 Temperature 98.6 F 97.9 F Pulse Rate 84 87 Respiratory Rate 16 16 Blood Pressure 146/66 H 123/55 L Pulse Oximetry 96 96 Oxygen Delivery Method Room Air Oxygen Flow Rate 0 Narrative Exam Narrative: WDWN NAD A&Ox3. Dressing on lumbar spine CDI, no noticible discharge, minimal erythema/edema. No focal deficits noted, calves are soft and tender. Objective Labs Result Diagrams: 07/11/18 05:08 Discharge Plan Discharge Plan Patient Disposition: Home Discharge comment: d/c after urinating and preferably flatus as well Discharge Med Rec/Prescriptions Prescriptions: New docusate sodium 100 mg Capsule 100 mg PO BID Qty: 0 RF: 0 hydroxyzine pamoate 25 mg Capsule 25 mg PO Q4HR PRN (Reason: Nausea And Vomiting) Qty: 50 RF: 0 oxycodone 5 mg tablet 5 mg PO Q4-6H PRN (Reason: pain) Qty: 40 RF: 0 Continue carvedilol 6.25 mg Tablet 6.25 mg PO BID RF: 0 loratadine [Allerclear] 10 mg Tablet 10 mg PO DAILY RF: 0 imatinib [Gleevec] 400 mg Tablet 600 mg PO SEEINSTR RF: 0 pediatric [id number] [Multi-Vitamins with Iron] Tablet,Chewable 1 tab PO DAILY RF: 0 calcium carbonate [Calcium 500] 500 mg calcium (1,250 mg) Tablet 500 mg PO DAILY RF: 0 [id number] 50 mcg-75 mcg -100 mg Capsule 1 tab PO DAILY RF: 0 Discontinued aspirin 81 mg Tablet,Delayed Release (Dr/Ec) 81 mg PO DAILY RF: 0 Follow up/Referrals: Mi Hunter MD [Physician] - (Follow up in the office in 2 weeks at your previously scheduled appointment.) Bal Estes [Primary Care Provider] - Provider Discharge Instructions Diet: Diet as Tolerated Activity: Weightbearing as tolerated, limit twisting, bending, no lifting greater than 5 lbs. Cold/Heat Therapy: Apply ice 20 minutes at a time as needed for pain/swelling Skin/Wound/Dressing Care Report to your healthcare provider any signs of infection, such as:: chills, fever, night sweats, increased pain, unusual drainage and unusual redness Dressing: Keep dressing clean, dry, and intact. Visit Report/Discharge Packet Instructions: DI for Transforaminal Lumbar Interbody Fusion Visit Report Forms: Stroke Signs & Symptoms Discharge Data Primary Care Provider: Bal Estes Attending Provider: Mi Hunter Admit Date/Time: 07/10/18 06:01 Discharges patient from system. Discharge Date/Time: 07/12/18 14:30 Quality VTE Deep Vein Thrombosis/Pulmonary Embolism Present on Admission: No
--- NOTE | 2018-07-12 10:35 | PT.IPTN ---
Current Diagnoses Foot drop, right foot (07/10/18) Other spondylosis with radiculopathy, lumbar region (07/10/18) Spinal stenosis, lumbar region with neurogenic claudication (07/10/18) Surgery Performed Operation Date: 07/10/18 07:45 Actual Procedures p L3-4, L4-5 TLIF w/Posterior Instru.(Not Applicable) - Mi Hunter MD Physical Therapy Treatment Note M2 PT-IP Current Condition Start: 07/10/18 16:06 Freq: NEEDED Status: Active Protocol: Document 07/10/18 14:36 (Rec: 07/10/18 16:34 [id number]) Physical Therapy Current Condition Current Condition Evaluation Date 07/10/18 Treatment Diagnosis Lumbar lami/fusion; difficulty walking Onset Date 07/10/2018 Precautions Lumbar Precautions Log Roll No Twisting Limit Bending Lifting Restriction of 10 lbs Gait Belt above Incisional Area M3 PT-IP Subjective Start: 07/10/18 16:06 Freq: NEEDED Status: Active Protocol: Document 07/12/18 10:35 GGD (Rec: 07/12/18 12:23 GGD [id number]) Subjective Physical Therapy Visit Type Type Treatment Note Visit Start Time 10:05 Visit Stop Time 10:35 Total Visit Minutes 30 Number of JUV[employer]IC[employer] Visits 3 Physical Therapy Visit Comments Patient Comments Pt states he feels ready to go home. Therapy Pain Assessment Pain When Pain Assessed At Rest Pain Present Pain Present Pain Reported Location Back Intensity 2 Scale Used Numeric (1 - 10) M4 PT-IP Mobility and Gait Start: 07/10/18 16:06 Freq: NEEDED Status: Active Protocol: Document 07/12/18 10:35 GGD (Rec: 07/12/18 12:23 GGD [id number]) PT-Bed Mobility Assessment Rolling Type of Rolling Log Rolling Bilateral Level of Assist Standby Assistance Supine to Sit Supine to Sit Contact Guard Assistance Sit to Supine Sit to Supine Contact Guard Assistance Scooting Scooting to Edge of Bed Standby Assistance Scooting Up and Down in Bed Standby Assistance PT-Transfer Assessment Sit to and From Stand Sit to and from Stand Standby Assistance Use of Upper Extremities Equipment Transfer Assistive Device Gait Belt Front Wheeled Walker Orthotic/Prosthetic Devices or Brace: No Transfers Transfer Destination Bed Chair Comments Mobility Comments trained on assisting for bed mobility with LE and how to cue for sit to stand and posture. Gait Assessment Gait Gait Assistance Required: Standby Assistance Distance (Feet) 460 Able to Maintain Weight Bearing Status Yes During Gait Assistive Devices Assistive Device Gait Belt Front Wheeled Walker Orthotic/Prosthetic Devices or Brace: No Gait Deviations General Gait Pattern Decreased Stride Length Decreased Feet Clearance Flexed Trunk Factors Limiting Gait Function Factors Limiting Gait Function Decreased Activity Tolerance Decreased Strength Limited Range of Motion Pain Stair Climbing Assessment Evaluation Level of Assist On Stairs Contact Guard Assistance Devices Stair Climbing Assistive Devices Left Railing Technique/Endurance Stair Climbing Direction Ascend and Descend Stair Climbing Technique Step to Step Number of Steps Climbed 3 Query Text: Stair Climbing Set # Repetitions (reps) 1 M5 PT-IP Objective Assessments Start: 07/10/18 16:06 Freq: NEEDED Status: Active Protocol: Document 07/10/18 14:36 (Rec: 07/10/18 16:34 [id number]) Orientation Orientation/Cognition Level of Alertness Alert Orientation Name Age Birthday Month Date Year Day of Week Place Situation Language Function Ability No Deficits Noted Safety Awareness Decreased Safety Awareness Comments During interview pt is sleepy and has hard time keeping eyes open Gross Range of Motion Lower Extremity ROM Assessment Within Functional Limits Strength Lower Extremity Strength Assessment Bilaterally Impaired Comments Strength Comments RLE grossly 4/5. LLE 4+/5 Sensation Assessment Sensation Light Touch Intact M6 PT-IP Treatment Start: 07/10/18 16:06 Freq: NEEDED Status: Active Protocol: Document 07/12/18 10:35 GGD (Rec: 07/12/18 12:23 GGD [id number]) Physical Therapy Treatment Education Education Provided Precautions Safety M7 PT-IP Assessment and Plan Start: 07/10/18 16:06 Freq: NEEDED Status: Active Protocol: Document 07/12/18 10:35 GGD (Rec: 07/12/18 12:23 GGD [id number]) PT Summary Assessment and Plan Summary Assessment Summary Pt improving with mobility and gait. He was safe and stable with gait and stair mobility. He did need cues for mobility. He need CGA for bed mobility with LE and cues. He safe for D/C home when medically stable . Frequency of Treatment Frequency Of Treatment Twice a Day Treatment Plan Other Recommendations and Next Treatment ambulatoin, stair climbing, Focus caregiver training as needed. Recommendations To Nursing Amount of Assist Needed 1 Person Assist Discharge Recommendations PT Discharge Recommendations Home with Assistance
--- NOTE | 2018-07-12 10:52 | CM.DPC ---
DCP: continued: Case received, d/c to home order noted. OT and PT have checked in with pt today and has been involved. Home today as per his plan.
[2018-07-12] MEDS: BISACODYL 5 MG TABLET PO (11:45)
--- NOTE | 2018-07-12 14:53 | PC.NURSE ---
D[place] Note: Pt with uneventful shift. [place] removed this am without incident. Pt reported this am that he had not passed flatus. ANJEL Bauer aware. Given bisacodyl po per MD order as well as prune juice. Pt ambulated in the hallway x2, once with and once with PT. Pt's is assisting with all ADLs. Pt voided in urinal, unmeasured, dumped before this RN could visualize it. Pt reported that void was ~1/2 cup in volume. Pt also reported that he was passing flatus this afternoon. Pt's dressing changed to coversite, changed and cleansed with NS without incident. Pt then given discharge paperwork, preferred to wait until his was at bedside to receive discharge teaching. This RN was helping with another pt and unable to leave bedside, so discharge teaching provided by Agapito Moseley, fishing reel assembler. Pt discharged to personal vehicle without incident.
== END 2018-07-12 14:30 | disposition home or self-care (01) | DRG 454 ==
PROVIDERS: Admitting Provider Orthopaedic Surgery Orthopaedic Surgery of the Spine; PCP Internal Medicine; Visit Provider Orthopaedic Surgery Orthopaedic Surgery of the Spine
PROC: 0SG10AJ Fusion of 2 or more Lumbar Vertebral Joints with Interbody Fusion Device, Posterior Approach, Anterior Column, Open Approach (ICD-10-PCS; principal; 2018-07-10 07:45)
DX: M48.061 Spinal stenosis, lumbar region without neurogenic claudication (principal); M47.16 Other spondylosis with myelopathy, lumbar region; C92.11 Chronic myeloid leukemia, BCR/ABL-positive, in remission; I50.22 Chronic systolic (congestive) heart failure; I47.2 Ventricular tachycardia; I25.810 Atherosclerosis of coronary artery bypass graft(s) without angina pectoris; E78.2 Mixed hyperlipidemia; I25.5 Ischemic cardiomyopathy; R11.2 Nausea with vomiting, unspecified
CPT/HCPCS: 72100; 76001; 85014; 85018; 97116; 97161; 97165; 97530; C1776; C9290; J0330; J0690; J1170; J2405; J2704; J3010

== ENCOUNTER → 2018-11-11 16:38 | Outpatient (CLI) | payer OTHER, SELFPAY ==
[2018-07-10 14:51] VITALS: BMI 28.1
--- NOTE | 2018-11-11 16:40 | DI.CT.S_ITS ---
PROCEDURE: CT LUMBAR SPINE WO CON INDICATIONS: SPINAL STENOSIS,LUMBAR REGION TECHNIQUE: Noncontrast 3 mm thick sections acquired from the T12 level to the sacrum. Sagittal and coronal reformats were constructed. For radiation dose reduction, the following was used: automated exposure control. COMPARISON: None. FINDINGS: Image quality: Excellent. Bones: No acute fracture identified. There is mild anterior wedging of the T11 and T12 vertebral bodies which could be physiologic. Diffuse osteopenia is seen. Postsurgical changes related to posterior spinal fixation with paraspinal rods pedicle screws from L3-L5, with intervening cage grass at L3-L4 and L4-L5. There is expected postoperative alignment. Mild lucency adjacent to the left L5 pedicle screw. There is mild narrowing of the L1-L2 and L2-L3 disc space. Small Schmorl's nodes are seen throughout the lower thoracic and upper lumbar spine. There is also right L3-L4 and L4-L5 laminotomies. T12-L1: No canal or bony foraminal narrowing L1-L2: No canal or bony foraminal narrowing L2-L3: No bony canal narrowing. Minimal bilateral foraminal narrowing L3-L4: No bony canal narrowing. No bony foraminal stenosis. L4-L5: No bony canal stenosis. Mild right bony foraminal narrowing. No left bony foraminal stenosis L5-S1: No bony canal or foraminal stenoses. Soft tissues: No retroperitoneal masses or hematomas. Visualized aorta is normal in caliber. Numerous vascular calcifications are seen. Ectasia of the distal abdominal aorta measuring 2.4 cm which could be monitored with serial ultrasound. Shotty subcentimeter, scattered retroperitoneal lymph nodes. Nonobstructive punctate left renal calculi. Colonic diverticulosis is seen without evidence of acute complication. IMPRESSION: Postsurgical changes from L3-L5 as above. Mild lucency at the bone metal interface of the L5 pedicle screw raising the possibility of early loosening or infection. Technically this finding is age-indeterminate. No high-grade bony canal stenoses. Mild ectasia of the distal abdominal aorta which could be monitored with abdominal ultrasound to document long-term stability. Nonobstructive punctate left renal calculi. Dictated by: Marko Chowdhury M.D. on 11/11/2018 at 17:12 Approved by: Marko Chowdhury M.D. on 11/11/2018 at 17:19
== END ==
PROVIDERS: PCP Internal Medicine; Visit Provider Orthopaedic Surgery Orthopaedic Surgery of the Spine
DX: M48.061 Spinal stenosis, lumbar region without neurogenic claudication (principal); I77.811 Abdominal aortic ectasia; N20.0 Calculus of kidney
CPT/HCPCS: 72131